=== PATIENT | male | born 1965 ===

== ENCOUNTER 2016-09-24 06:48 | Observation (INO) | payer SELFPAY ==
[2016-09-24 06:49] VITALS: BMI 27.3
[2016-09-24 07:54] LABS: BASO # 0.1 K/uL (0.0-0.2); BASO % 0.8 % (0.0-2.0); EOS # 0.8 K/uL (0.0-0.7); EOS % 11.6 % (0.0-4.0); HEMOGLOBIN 14.8 g/dL (12.0-18.0); LYMPH # 1.7 K/uL (1.0-4.3); LYMPH % 24.7 % (20.0-40.0); MEAN CELL VOLUME 82.1 fl (80.0-94.0); MEAN CORPUSCULAR HEMOGLOBIN 27.3 pg (27.0-31.0); MEAN CORPUSCULAR HGB CONC 33.3 g/dL (33.0-37.0); MEAN PLATELET VOLUME 8.9 fl (7.2-11.7); MONO # 0.4 K/uL (0.0-0.8); MONO % 6.1 % (0.0-10.0); NEUT % 56.8 % (50.0-75.0); NRBC % 0.1 % (0.0-0.0); RBC 5.43 Mil/uL (4.40-5.90)
[2016-09-24 08:06] LABS: INR 0.9 (0.9-1.2); PARTIAL THROMBOPLASTIN TIME 28.4 Seconds (25.6-37.1); PROTHROMBIN TIME 10.4 Seconds (9.8-13.1)
--- NOTE | 2016-09-24 08:17 | ED PDOC ---
HPI:STROKE - Time Time: 07:30 - Historian Historian: Patient, Hand [employer] ([employer]) - Chief Complaint Chief Complaint: Weakness, Difficulty walking - Onset Date: 09/17/16 Onset: Days (7) - Timing Timing: Intermittent - Context Context: Standing - Location Location: Difficult to localize Locate left: other (LUE / LLE) - Severity of pain Maximum severity:: Mild Severity Current: Mild - TPA Positive for Contraindication: Yes Reason tPA is not being Administered: symptoms ongoing 1 week - Notes: Notes:: 51yo male c/o dizziness, mild headache and subjective left sided weakness for about one week. Denies syncope, chest pain, change in speech. Does note occasional change in vision and palpitations. PMD clinic NIHSS Stroke Scale - Date/Time Evaluation Performed Date Performed: 09/24/16 Time Performed: 07:40 When Was NIHSS Performed: Baseline - How Severe is the Stroke Level of Consciousness: 0=Alert LOC to Questions: 0=Both comments correct LOC to commands: 0=Obeys both correctly Best Gaze: 0=Normal Visual: 0=No visual loss Facial: 0=Normal Motor Arm - Left: 0=No drift Motor Arm - Right: 0=No drift Motor Leg - Left: 0=No drift Motor Leg - Right: 0=No drift Limb Ataxia: 0=Absent Sensory: 0=Normal Best Language: 0=No aphasia Dysarthia: 0=Normal articulation Extinction & Inattention (Neglect): 0=Normal, no object Score: 0 rTPA Inclusion/Exclusion - Refusal of Treatment Patient Refused Treatment: No - Inclusion Criteria for Altepase Patient is 18 years or Older: Yes The Clinical Diagnosis of Ischemic Stroke That is Causing a Potentially Disabling Neurological Deficit: No Time of Onset is Well Established to be Less Than 270 Minute Before Treatment Would Begin: No Risk/Benefit Discussed With Patient/Family Member Present: No - Warning to TPA With Conditions Condition: Stroke Serevity Too Mild Past Medical History Reviewed: Historical Data, Nursing Documentation, Vital Signs Vital Signs: Last Vital Signs Temp 97.7 F 09/24/16 07:04 Pulse 60 09/24/16 07:21 Resp 18 09/24/16 07:21 BP 118/72 09/24/16 07:21 Pulse Ox 99 09/24/16 07:21 - Medical History PMH: HTN - Family History Family History: States: Unknown Family Hx - Social History Current smoker - smoking cessation education provided: No Drugs: Denies - Home Medications Home Medications: Ambulatory Orders Medication Instructions Recorded No Known Home Med 09/24/16 - Allergies Allergies/Adverse Reactions: Allergies Allergy/AdvReac Type Severity Reaction Status Date / Time No Known Allergies Allergy Verified 09/24/16 09:35 Review of Systems ROS Statement: Except As Marked, All Systems Reviewed And Found Negative Constitutional: Negative for: Fever, Chills Eyes: Positive for: Vision Change. Negative for: Eyelid Inflammation ENT: Negative for: Ear Discharge Cardiovascular: Negative for: Chest Pain, Palpitations, Paroxysmal Noc. Dyspnea Respiratory: Negative for: Cough, Shortness of Breath Gastrointestinal: Negative for: Nausea, Vomiting Genitourinary Male: Negative for: Dysuria, Frequency Musculoskeletal: Negative for: Neck Pain, Shoulder Pain Skin: Negative for: Rash, Lesions, Jaundice Neurological: Positive for: Weakness, Headache, Dizziness. Negative for: Numbness, Change in Speech, Confusion, Seizures Physical Exam - Reviewed Nursing Documentation Reviewed: Yes Vital Signs Reviewed: Yes - Physical Exam Appears: Positive for: Well, Non-toxic, No Acute Distress Head Exam: Positive for: ATRAUMATIC, NORMAL INSPECTION, NORMOCEPHALIC Skin: Positive for: Normal Color, Warm, DRY Eye Exam: Positive for: EOMI, Normal appearance, PERRL ENT: Positive for: Normal ENT Inspection Neck: Positive for: Normal, Painless ROM Cardiovascular/Chest: Positive for: Regular Rate, Rhythm Respiratory: Positive for: CNT, Normal Breath Sounds Gastrointestinal/Abdominal: Positive for: Normal Exam, Bowel Sounds, Soft Back: Positive for: Normal Inspection Extremity: Positive for: Normal ROM Neurologic/Psych: Positive for: Alert, debt collector II-XII (intact), Oriented. Negative for: Motor/Sensory Deficits (strength 5/5 all ext), Aphasia, Facial Droop - Laboratory Results Result Diagrams: 09/24/16 07:34 09/24/16 07:34 - ECG O2 Sat by Pulse Oximetry: 99 Medical Decision Making Medical Decision Making: cerebral ischemia workup initiated given c/o unilateral subjective weakness. CT brain neg, aspiring ordered. Admit FP service Obs for workup. Disposition - Clinical Impression Clinical Impression: TIA (transient ischemic attack) - Patient ED Disposition Is Patient to be Admitted: Yes Counseled Patient/Family Regarding: Studies Performed, Diagnosis - Disposition Disposition Time: 09:00 Condition: FAIR
--- NOTE | 2016-09-24 09:01 | CT ---
PROCEDURE: CT HEAD WITHOUT CONTRAST. HISTORY: Left sided weakness x 1 wk COMPARISON: 11/29/2012. TECHNIQUE: Axial computed tomography images were obtained through the head/brain without intravenous contrast. Radiation dose: Total exam DLP = 878.79 mGy-cm. This CT exam was performed using one or more of the following dose reduction techniques: Automated exposure control, adjustment of the mA and/or kV according to patient size, and/or use of iterative reconstruction technique. FINDINGS: HEMORRHAGE: No intracranial hemorrhage. BRAIN: Duncan-white matter differentiation is preserved. There is no mass, mass effect or abnormal extra-axial fluid collection. VENTRICLES: The ventricles are normal in size, shape and configuration. CALVARIUM: The skull base and calvarium are normal. PARANASAL SINUSES: Predominantly clear. MASTOID AIR CELLS: Predominantly clear. OTHER FINDINGS: None. IMPRESSION: No acute intracranial abnormality. If there is a persistent focal neurologic deficit and an ongoing clinical concern for acute infarction, an MRI of the brain without intravenous contrast would be a more sensitive modality for evaluation of hyperacute/acute ischemic infarction.
[2016-09-24 09:08] LABS: ALB/GLOB RATIO 1.3 (1.0-2.1); ALBUMIN 4.5 g/dL (3.5-5.0); ALT/SGPT 45 U/L (21-72); AST/SGOT 27 U/L (17-59); BLOOD UREA NITROGEN 17 mg/dl (9-20); CALCIUM 9.4 mg/dL (8.4-10.2); GFR AFRICAN-AMERICAN > 60; GFR NON-AFRICAN AMERICAN > 60; HDL CHOLESTEROL 37 MG/DL (30-70)
[2016-09-24 09:19] LABS: LDL CHOLESTEROL 100 mg/dL (0-129)
--- NOTE | 2016-09-24 10:34 | RAD ---
HISTORY: Shortness of breath COMPARISON: 06/13/2016. FINDINGS: LUNGS: There is bibasilar scarring. There is no focal consolidation. PLEURA: No significant pleural effusion identified, no pneumothorax apparent. CARDIOVASCULAR: Normal. OSSEOUS STRUCTURES: No significant abnormalities. VISUALIZED UPPER ABDOMEN: Normal. OTHER FINDINGS: None. IMPRESSION: No active pulmonary disease.
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
[2016-09-24] MEDS ORDERED: Gadodiamide 287 MG/ML VIAL (15ML) IV ONE (16:30)
--- NOTE | 2016-09-24 17:49 | MRI ---
PROCEDURE: MRI BRAIN WITH AND WITHOUT CONTRAST HISTORY: possible TIA COMPARISON: Comparison is made to the previous same-day CT of the head without contrast. TECHNIQUE: Multiplanar, multisequence MR images of the brain were obtained with and without intravenous contrast enhancement. FINDINGS: HEMORRHAGE: None DWI: No evidence of an acute or early subacute infarction. BRAIN PARENCHYMA: No mass,mass effect or edema. No atrophy or chronic microvascular ischemic changes. ENHANCEMENT: No abnormal intracranial enhancement. VENTRICLES: Unremarkable. No hydrocephalus. CRANIUM: Unremarkable. ORBITS: Grossly unremarkable. PARANASAL SINUSES/MASTOIDS: Clear VASCULAR SYSTEM: Skull base flow voids intact. OTHER FINDINGS: None . IMPRESSION: Unremarkable pre and post contrast enhanced MRI of the brain.
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
--- NOTE | 2016-09-24 19:04 | US ---
PROCEDURE: Carotid vertebral duplex HISTORY: New onset dizziness, upper extremity paresthesia COMPARISON: None available. TECHNIQUE: Grayscale, color Doppler and spectral Doppler assessment of the carotid system bilaterally. This includes common carotid, internal carotid arteries Vertebral artery assessment with respect to direction of flow (antegrade or retrograde) FINDINGS: RIGHT carotid system: Assessment of plaque: Heterogeneous plaque formation. Peak systolic ICA velocity: 95.1 cm/sec End-diastolic velocity: 40.2 cm/sec ICA/CCA ratio: 1.30 Vertebral artery flow: Antegrade LEFT carotid system: Assessment of plaque: Heterogeneous plaque formation. Peak systolic ICA velocity: 102.2 cm/sec End-diastolic velocity: 45.3 cm/sec ICA/CCA ratio: 1.0 Vertebral artery flow: Antegrade IMPRESSION: Right ICA degree of stenosis: Less than 50% Left ICA degree of stenosis: Less than 50% Reference Internal Carotid Artery (ICA) Peak Systolic Velocity (PSV) for above: 1. Less than 50% stenosis less than 125 cm/s peak systolic velocity 2. 50-69% stenosis 125-230cm/s peak systolic velocity 3. Greater than 70% but less than near occlusion greater than 230 cm/s peak systolic velocity
--- NOTE | 2016-09-25 08:12 | CARD ---
APPROVED REPORT EXAM: Two-dimensional and M-mode echocardiogram with Doppler, color Doppler with contrast. Other Information Quality : GoodRhythm : NSR INDICATION CVA/TIA Echo Enhancing Agent Indication: Endocardial border delineation Agent/Amount Used: Definity M-Mode DIMENSIONS Left Atrium (MM)3.82 (2.5-4.0cm)IVSd0.94 (0.7-1.1cm) Aortic Root3.24 (2.2-3.7cm)LVDd5.47 (4.0-5.6cm) Aortic Cusp Exc.2.41 (1.5-2.0cm)PWd0.87 (0.7-1.1cm) IVSs1.41 cmFS (%) 39 % LVDs3.35 (2.0-3.8cm)PWs1.00 cm Mitral Valve MV E Bwabicxt43.3cm/sMV DECEL [id number] A Jlsolfmt07.7cm/s MV ECH54pyZ/A ratio1.7MVA (PHT)3.74cm2 TDI Lateral E' Peak V15.97cm/sMedial E' Peak V12.06cm/sE/Lateral E'4.3 E/Medial E'5.7 Pulmonary Valve PV Peak Dfyckcsz608.5cm/s LEFT VENTRICLE The left ventricle is normal size. There is normal left ventricular wall thickness. Left ventricle systolic function is normal. The Ejection Fraction is 65-70%. There is normal LV segmental wall motion. The left ventricular diastolic function is normal. RIGHT VENTRICLE The right ventricle is normal size. There is normal right ventricular wall thickness. The right ventricular systolic function is normal. ATRIA The left atrium size is normal. The right atrium size is normal. AORTIC VALVE The aortic valve is normal in structure and function. No aortic regurgitation is present. There is no aortic valvular stenosis. MITRAL VALVE The mitral valve is normal in structure and function. There is no evidence of mitral valve prolapse. There is no mitral valve stenosis. There is no mitral valve regurgitation noted. TRICUSPID VALVE The tricuspid valve is normal in structure and function. There is no tricuspid valve regurgitation noted. PULMONIC VALVE The pulmonary valve is normal in structure and function. There is no pulmonic valvular regurgitation. GREAT VESSELS The aortic root is normal in size. Due to poor image quality, the IVC could not be assessed. PERICARDIAL EFFUSION The pericardium appears normal. <Conclusion> Echo enhancement was used to delineate endocardial surface and examine LV wall motion clearly. The left ventricle is normal size. There is normal left ventricular wall thickness. There is normal LV segmental wall motion. Left ventricle systolic function is normal. The Ejection Fraction is 65-70%. The left ventricular diastolic function is normal.
--- NOTE | 2016-09-25 08:30 | CARD ---
APPROVED REPORT EKG Measurement Heart [id number] HI [id number] <Conclusion> Normal sinus rhythm Normal ECG
[2016-09-25] MEDS ORDERED: Enoxaparin 40 mg Syringe SC SCH (09:00)
[2016-09-25 09:47] VITALS: TEMP 98
[2016-09-25 09:49] VITALS: BP 110/73; PULSE 80; RESP 14
[2016-09-25 14:53] LABS: FOLATE 12.1 ng/mL
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
[2016-10-03 11:06] VITALS: O2SAT 99
== END 2016-09-25 12:55 | disposition home or self-care (01) ==
LOC: H.ER 06:48 → H.ERHOLD 09:15 → H.ICU/CCU 10:00
PROVIDERS: ADMIT Family Medicine Geriatric Medicine; ATTEND Family Medicine Geriatric Medicine
DX: G45.9 Transient cerebral ischemic attack, unspecified (principal); I10 Essential (primary) hypertension; M54.2 Cervicalgia; E11.9 Type 2 diabetes mellitus without complications; E78.1 Pure hyperglyceridemia; E78.5 Hyperlipidemia, unspecified; R51 Headache

== ENCOUNTER 2016-11-27 08:41 | Day surgery (SDC) | payer SELFPAY ==
[2016-04-20 17:00] VITALS: BMI 27.3
[2016-11-27] MEDS ORDERED: Lactated Ringer's 500 ML IV ONE (08:56)
[2016-11-27] MEDS ORDERED: Propofol 10 mg/ml Inj (20 ML) ONE (12:32)
[2016-11-27 12:58] VITALS: TEMP 97
[2016-11-27 13:16] VITALS: BP 110/62; PULSE 61; RESP 14; O2SAT 99
== END 2016-11-27 13:19 | disposition home or self-care (01) ==
LOC: H.ENDO 08:41
PROVIDERS: ATTEND Internal Medicine Gastroenterology
DX: Z12.11 Encounter for screening for malignant neoplasm of colon (principal); E11.9 Type 2 diabetes mellitus without complications; K64.0 First degree hemorrhoids
CPT/HCPCS: 45378; J2001; J2704; J7120

== ENCOUNTER 2017-09-18 18:19 | Emergency (ER) | payer OTHER ==
[2017-09-18 18:20] VITALS: BMI 27.3
[2017-09-18 18:28] VITALS: BP 117/72; PULSE 70; RESP 16; TEMP 98.2; O2SAT 99
--- NOTE | 2017-09-18 19:20 | ED PDOC ---
HPI: Skin/Bite Injury Time Seen by Provider: 09/18/17 18:28 Chief Complaint (Nursing): Abnormal Skin Integrity Chief Complaint (Provider): Rash History Per: Patient History/Exam Limitations: no limitations Onset/Duration Of Symptoms: Days (x1) Current Symptoms Are (Timing): Still Present Additional Complaint(s): 52 year old male presents to the ED for evaluation of a rash covering his body since yesterday. He has been seen in the past for similar symptoms. PMD: Bismark Robbins Past Medical History Reviewed: Historical Data, Nursing Documentation, Vital Signs Vital Signs: Last Vital Signs Temp 98.2 F 09/18/17 18:25 Pulse 70 09/18/17 18:25 Resp 16 09/18/17 18:25 BP 117/72 09/18/17 18:25 Pulse Ox 99 09/18/17 19:27 - Medical History PMH: Diabetes (type 2), HTN, Hypercholesterolemia (Diet controlled) Denies: Chronic Kidney Disease - Surgical History Surgical History: Hernia Repair - Family History Family History: States: Unknown Family Hx - Social History Current smoker - smoking cessation education provided: No Alcohol: None Drugs: Denies - Home Medications Home Medications: Ambulatory Orders Medication Instructions Recorded metFORMIN [glucOPHAGE] 500 mg PO BID 11/27/16 Famotidine [Pepcid] 20 mg PO DAILY #6 tab 09/18/17 predniSONE [predniSONE Tab] 20 mg PO DAILY #12 tab 09/18/17 - Allergies Allergies/Adverse Reactions: Allergies Allergy/AdvReac Type Severity Reaction Status Date / Time No Known Allergies Allergy Verified 09/18/17 18:25 Review of Systems ROS Statement: Except As Marked, All Systems Reviewed And Found Negative Skin: Positive for: Rash Physical Exam - Reviewed Nursing Documentation Reviewed: Yes Vital Signs Reviewed: Yes - Physical Exam Appears: Positive for: No Acute Distress Head Exam: Positive for: ATRAUMATIC, NORMOCEPHALIC Skin: Positive for: Rash (on dorsal upper and lower extremities: erythematous papules with blanching and some areas of coalescing ) Neurologic/Psych: Positive for: Alert, Oriented (x3) - ECG O2 Sat by Pulse Oximetry: 99 (RA) Pulse Ox Interpretation: Normal Medical Decision Making Medical Decision Making: Initial Impression: rash Time: 18:44 Initial Plan: --Pepcid 20 mg PO --Methylprednisolone 125 mg IM Scribe Attestation Documented by Silva Campbell acting as a scribe for Agnes Ruiz PA-C. Provider Attestation All medical record entries made by the Scribe were at my direction and personally dictated by me. I have reviewed the chart and agree that the record accurately reflects my personal performance of the history, physical exam, medical decision making, and the department course for this patient. I have also personally directed, reviewed, and agree with the discharge instructions and disposition. Disposition - Clinical Impression Clinical Impression: Dermatitis - Patient ED Disposition Is Patient to be Admitted: No Counseled Patient/Family Regarding: Diagnosis, Need For Followup, Rx Given - Disposition Disposition: Routine/Home Disposition Time: 19:18 Condition: STABLE Additional Instructions: Follow-up with PMD. Benadryl may also be taken for itchiness. Prescriptions: Famotidine [Pepcid] 20 mg PO DAILY #6 tab predniSONE [predniSONE Tab] 20 mg PO DAILY #12 tab Instructions: Hives Forms: [email or web address] (Chinese)
== END 2017-09-18 19:22 | disposition home or self-care (01) ==
LOC: H.ER 18:19
DX: L30.9 Dermatitis, unspecified (principal); E11.9 Type 2 diabetes mellitus without complications; Z79.84 Long term (current) use of oral hypoglycemic drugs; E78.00 Pure hypercholesterolemia, unspecified; I10 Essential (primary) hypertension
CPT/HCPCS: 96372; 99282; J2930

== ENCOUNTER 2018-07-16 06:56 | Emergency (ER) | payer SELFPAY ==
[2018-07-16 07:02] VITALS: BMI 26.2
[2018-07-16 07:03] VITALS: BP 119/67; PULSE 56; RESP 18; O2SAT 99
--- NOTE | 2018-07-16 07:26 | ED PDOC ---
HPI: General Adult Time Seen by Provider: 07/16/18 07:05 Chief Complaint (Provider): Generalized Body aches History Per: Patient History/Exam Limitations: no limitations Onset/Duration Of Symptoms: Other (1 week) Additional Complaint(s): 53 y/o male presents to the ED complaining of generalized body aches and chills associated with left eye erythema thats been ongoing for 1 week. Patient denies fever, sore throat, cough, abdominal pain, nausea, vomiting, or any diarrhea. PMD: none provided Past Medical History Reviewed: Historical Data, Nursing Documentation, Vital Signs Vital Signs: Last Vital Signs Temp 97.5 F L 07/16/18 07:02 Pulse 56 L 07/16/18 07:02 Resp 18 07/16/18 07:02 BP 119/67 07/16/18 07:02 Pulse Ox 99 07/16/18 07:02 - Medical History PMH: Diabetes (type 2), HTN, Hypercholesterolemia (Diet controlled) Denies: Chronic Kidney Disease - Surgical History Surgical History: Hernia Repair - Family History Family History: States: Unknown Family Hx - Home Medications Home Medications: Ambulatory Orders Medication Instructions Recorded metFORMIN [glucOPHAGE] 500 mg PO BID 11/27/16 Famotidine [Pepcid] 20 mg PO DAILY #6 tab 09/18/17 predniSONE [predniSONE Tab] 20 mg PO DAILY #12 tab 09/18/17 Naproxen [Naprosyn] 500 mg PO Q12H #20 tab 07/16/18 Tobramycin 0.3% [Tobramycin 5 Ml] 1 drop OP TID #1 bottle 07/16/18 - Allergies Allergies/Adverse Reactions: Allergies Allergy/AdvReac Type Severity Reaction Status Date / Time No Known Allergies Allergy Verified 09/18/17 18:25 Review of Systems ROS Statement: Except As Marked, All Systems Reviewed And Found Negative Constitutional: Positive for: Chills, Other ((+) bodyaches.). Negative for: Fever Eyes: Positive for: Redness (left eye) ENT: Negative for: Throat Pain Respiratory: Negative for: Cough Gastrointestinal: Negative for: Nausea, Vomiting, Abdominal Pain, Diarrhea Physical Exam - Reviewed Nursing Documentation Reviewed: Yes Vital Signs Reviewed: Yes - Physical Exam Appears: Positive for: Well, Non-toxic, No Acute Distress Head Exam: Positive for: ATRAUMATIC, NORMAL INSPECTION, NORMOCEPHALIC Skin: Positive for: Normal Color, Warm, Dry Eye Exam: Positive for: Normal appearance, EOMI, PERRL, Conjunctival injection (Left eye), Scleral icterus (no discharge) ENT: Positive for: Normal ENT Inspection Neck: Positive for: Normal, Painless ROM, Supple Cardiovascular/Chest: Positive for: Regular Rate, Rhythm. Negative for: Murmur Respiratory: Positive for: Normal Breath Sounds. Negative for: Wheezing Gastrointestinal/Abdominal: Positive for: Normal Exam, Soft. Negative for: Tenderness Back: Positive for: Normal Inspection. Negative for: L CVA Tenderness, R CVA Tenderness Extremity: Positive for: Normal ROM Neurological/Psych: Positive for: Awake, Alert, Normal Tone, Oriented (x3). Negative for: Motor/Sensory Deficits - ECG O2 Sat by Pulse Oximetry: 99 Medical Decision Making Medical Decision Making: Time: 721 Initial Impression: Initial Plan: -Accucheck Scribe Attestation: Documented by Jordana Hendrix, acting as a scribe for Kashif Gonzáles Provider Scribe Attestation: All medical record entries made by the Scribe were at my direction and personally dictated by me. I have reviewed the chart and agree that the record accurately reflects my personal performance of the history, physical exam, medical decision making, and the department course for this patient. I have also personally directed, reviewed, and agree with the discharge instructions and disposition. Disposition - Clinical Impression Clinical Impression: Conjunctivitis, Viral syndrome - Patient ED Disposition Is Patient to be Admitted: No Counseled Patient/Family Regarding: Studies Performed, Diagnosis, Need For Followup, Rx Given - Disposition Referrals: [facility] [Outside] Disposition: Routine/Home Disposition Time: 07:39 Condition: FAIR Prescriptions: Naproxen [Naprosyn] 500 mg PO Q12H #20 tab Tobramycin 0.3% [Tobramycin 5 Ml] 1 drop OP TID #1 bottle Instructions: Conjunctivitis (Pinkeye), Viral Syndrome (DC)
[2018-07-16 07:48] VITALS: TEMP 97.6
== END 2018-07-16 07:42 | disposition home or self-care (01) ==
LOC: H.ER 06:56
DX: B34.9 Viral infection, unspecified (principal); H10.9 Unspecified conjunctivitis; E11.9 Type 2 diabetes mellitus without complications; E78.00 Pure hypercholesterolemia, unspecified; I10 Essential (primary) hypertension; Z79.84 Long term (current) use of oral hypoglycemic drugs

== ENCOUNTER 2018-07-18 16:07 | Emergency (ER) | payer SELFPAY ==
[2018-07-18 16:07] VITALS: BMI 26.2
[2018-07-18 16:18] VITALS: RESP 18
--- NOTE | 2018-07-18 17:03 | ED PDOC ---
HPI: Chest Pain Chief Complaint (Provider): Chest pain with back pain and headache History Per: Patient History/Exam Limitations: no limitations Onset/Duration Of Symptoms: Days (1 day duration) Current Symptoms Are (Timing): Other (Headache still present) Quality: Sharp (sharp chest pain and sharp back pain) Associated Symptoms: denies: Nausea, Dyspnea, Diaphoresis, Syncope Exacerbating Factors: None Alleviating Factors: None Additional Complaint(s): 53 yo male with history of DM and HTN presented to ED because of chest pain, dizziness and left sided WATSON. Chest pain began this morning while at work, he was lifting a 40 lb box at work and states that after he put it down he began to have left sided upper back pain with left sided chest pain associated with dizziness. Dizziness described as the room spinning, states it is worse when he lays flat. Reports no radiation of either back pain or chest pain. States he has also been suffering from a Left sided headache since last night associated with blurred vision. States he went to bed and woke up with the same Left sided headache- reports he has had this headache prior and is not reported as the worst headache of his life. He tried advil for the back and chest pain without any relief. He reports he had an episode yesterday where he felt tingling of his lower bilateral extremities. Denies dypsnea, nausea, vomiting, association of chest pain with food, abdominal pain, fevers, chills. PMD: [facility] Social: Denies smoking history, illicit drug use and alcohol use. - Risk Factors PE Risk Factors: Neg: Extremity Immobilization/Fx, Decreased Mobilty /Activity, Recent Major Surgery, Recent Hospitalization, Active Cancer, Previous DVT, Previous PE <Hoda De La Cruz - Last Filed: 07/18/18 18:50> <Ivette Ramirez - Last Filed: 07/19/18 15:00> Time Seen by Provider: 07/18/18 16:19 Chief Complaint (Nursing): Chest Pain Past Medical History Vital Signs: Last Vital Signs Temp 98.0 F 07/18/18 16:17 Pulse 59 L 07/18/18 16:17 Resp 18 07/18/18 16:17 BP 127/69 07/18/18 16:17 Pulse Ox 99 07/18/18 16:17 Primary Care Provider: FAMILY PROVIDER,NO - Medical History PMH: Diabetes (type 2), HTN, Hypercholesterolemia (Diet controlled) Denies: Chronic Kidney Disease - Surgical History Surgical History: Hernia Repair - Family History Family History: States: Unknown Family Hx <Hoda De La Cruz - Last Filed: 07/18/18 18:50> Vital Signs: Last Vital Signs Temp 98.0 F 07/18/18 16:17 Pulse 59 L 07/18/18 16:17 Resp 18 07/18/18 16:17 BP 127/69 07/18/18 16:17 Pulse Ox 99 07/18/18 18:52 <Ivette Ramirez - Last Filed: 07/19/18 15:00> - Home Medications Home Medications: Ambulatory Orders Medication Instructions Recorded metFORMIN [glucOPHAGE] 500 mg PO BID 11/27/16 Famotidine [Pepcid] 20 mg PO DAILY #6 tab 09/18/17 predniSONE [predniSONE Tab] 20 mg PO DAILY #12 tab 09/18/17 Naproxen [Naprosyn] 500 mg PO Q12H #20 tab 07/16/18 Tobramycin 0.3% [Tobramycin 5 Ml] 1 drop OP TID #1 bottle 07/16/18 Ibuprofen [Motrin Tab] 600 mg PO Q8 PRN #60 tab 07/18/18 - Allergies Allergies/Adverse Reactions: Allergies Allergy/AdvReac Type Severity Reaction Status Date / Time No Known Allergies Allergy Verified 09/18/17 18:25 ALLAN Risk Score for UA/NSTEMI - ALLAN Risk Score Age > 64: NO 3 or more CAD Risk Factors: NO Known CAD (Stenosis greater than 50%): NO Aspirin use in past 7 days: NO Severe Angina: NO EKG ST changes greater than 0.5mm: NO Positive Cardiac Marker: NO (0 ALLAN score) ALLAN Score: 0 Risk %: 5% <Hoda De La Cruz - Last Filed: 07/18/18 18:50> Wells Criteria for PE - Wells Criteria for Pulmonary Embolism Clinical Signs and Symptoms of DVT: No P.E is #1 Diagnosis, or Equally Likely: No Heart Rate >100: No Immobilization at least 3 days;Surgery previous 4 weeks: No Previous, objectively diagnosed PE or DVT: No Hemoptysis: No Malignancy w/treatment within 6 months, or palliative: No Total Score: 0 <Hoda De La Cruz - Last Filed: 07/18/18 18:50> Review of Systems Constitutional: Negative for: Fever, Chills, Malaise Eyes: Negative for: Pain ENT: Negative for: Ear Pain Cardiovascular: Positive for: Chest Pain (Left sided chest pain). Negative for: Palpitations Respiratory: Negative for: Cough, Shortness of Breath, Hemoptysis, SOB with Exertion, Wheezing Gastrointestinal: Negative for: Nausea, Vomiting, Abdominal Pain, Diarrhea Genitourinary Male: Negative for: Dysuria, Frequency Musculoskeletal: Positive for: Back Pain (left upper back pain) Skin: Positive for: Rash (bilateral lower extremity rash) Neurological: Negative for: Weakness, Numbness, Confusion <Hoda De La Cruz - Last Filed: 07/18/18 18:50> Physical Exam - Reviewed Vital Signs Reviewed: Yes - Physical Exam Appears: Positive for: Well, Non-toxic, No Acute Distress Head Exam: Positive for: NORMAL INSPECTION Skin: Positive for: Normal Color, Warm, Dry ENT: Positive for: TM Is/Are (clear. TM visualized. No erythema in canal). Negative for: Nasal Congestion Cardiovascular/Chest: Positive for: Regular Rate, Rhythm, Bradycardia. Negative for: Chest Non Tender, Murmur Respiratory: Positive for: Normal Breath Sounds. Negative for: Decreased Breath Sounds, Accessory Muscle Use, Crackles, Rales, Rhonchi, Stridor, Wheezing, Respiratory Distress Gastrointestinal/Abdominal: Positive for: Normal Exam, Bowel Sounds, Soft. Negative for: Tenderness, Guarding, Rebound, Hernia Back: Positive for: Normal Inspection, Other (Left tenderness noted on palpation of left spine of scapula). Negative for: L CVA Tenderness, R CVA Tenderness, Vertebral Tenderness Extremity: Positive for: Other (Bilateral rash (chronic) noted on lower extremities). Negative for: Tenderness, Pedal Edema, Calf Tenderness Neurological/Psych: Positive for: Awake, Alert, Oriented (Alert and Oriented x3.), Gait (Normal gait). Negative for: Motor/Sensory Deficits <Hoda De La Cruz - Last Filed: 07/18/18 18:50> - Laboratory Results Result Diagrams: 07/18/18 17:18 07/18/18 17:18 - ECG ECG: Positive for: Interpreted By Me ECG Rhythm: Positive for: Sinus Rhythm O2 Sat by Pulse Oximetry: 99 - Progress ED Course And Treament: 53 yo male with history of DM and HTN presented to ED because of chest pain, dizziness and left sided WATSON. Differentials: ACS vs. aortic dissection; migraine vs. acute intracranial pathology Plan: -- CBC -- Troponin -- CMP -- CT head without contrast -- CT angio -- Phos -- Mg -- CMP -- PT/PTT -- EKG Reassessed: 1834 Patient reports feeling about the same. -- CBC WNL, CMP WNL; PT/PTT: WNL -- CT head: negative for acute intracranial pathology -- CT angio pending read -- At this time based on Heart Pathway score of 2 (low risk)- repeat Troponin 3 hours after first troponin (@ 1999) and repeat EKG at that time. -- Plan is for discharge if 2nd troponin comes back negative and normal EKG. Discussed case with Dr. Ramirez. <Hoda De La Cruz - Last Filed: 07/18/18 18:50> - Laboratory Results Result Diagrams: 07/18/18 17:18 07/18/18 17:18 Lab Results: PT 12.0 Seconds (9.8-13.1) 07/18/18 17:18 INR 1.1 07/18/18 17:18 APTT 34.6 Seconds (25.6-37.1) 07/18/18 17:18 Troponin I < 0.0120 ng/mL (0.00-0.120) 07/18/18 20:39 Total Bilirubin 0.5 mg/dl (0.2-1.3) 07/18/18 17:18 AST 26 U/L (17-59) 07/18/18 17:18 ALT 32 U/L (21-72) 07/18/18 17:18 Alkaline Phosphatase 125 U/L (38-126) 07/18/18 17:18 Total Protein 7.5 G/DL (6.3-8.2) 07/18/18 17:18 Albumin 4.4 g/dL (3.5-5.0) 07/18/18 17:18 Globulin 3.1 gm/dL (2.2-3.9) 07/18/18 17:18 Albumin/Globulin Ratio 1.4 (1.0-2.1) 07/18/18 17:18 <Ivette Ramirez - Last Filed: 07/19/18 15:00> Disposition Doctor Will See Patient In The: Office - Disposition Disposition: Routine/Home Disposition Time: 18:52 <Hoda De La Cruz - Last Filed: 07/18/18 18:50> - Disposition Disposition Time: 21:59 <Ivette Ramirez - Last Filed: 07/19/18 15:00> - Clinical Impression Clinical Impression: Chest pain - Disposition Referrals: [facility] [Outside] - 07/21/18 Condition: STABLE Prescriptions: Ibuprofen [Motrin Tab] 600 mg PO Q8 PRN #60 tab PRN Reason: Pain, Moderate (4-7) Instructions: Chest Pain That Is Not Caused by the Heart (DC), Muscle Strain (DC) Forms: [facility] ED School/Work Excuse Print Language: TELUGU
[2018-07-18 17:24] LABS: BASO % 0.7 % (0.0-2.0); EOS # 0.3 K/uL (0.0-0.7); EOS % 6.3 % (0.0-4.0); HEMOGLOBIN 13.2 g/dL (12.0-18.0); LYMPH # 1.5 K/uL (1.0-4.3); LYMPH % 28.5 % (20.0-40.0); MEAN CORPUSCULAR HEMOGLOBIN 26.4 pg (27.0-31.0); MEAN CORPUSCULAR HGB CONC 32.6 g/dL (33.0-37.0); MEAN PLATELET VOLUME 8.2 fl (7.2-11.7); MONO # 0.3 K/uL (0.0-0.8); MONO % 6.3 % (0.0-10.0); NEUT % 58.2 % (50.0-75.0); RBC 4.98 Mil/uL (4.40-5.90); RED CELL DISTRIBUTION WIDTH 15.4 % (11.5-14.5); WHITE BLOOD COUNT 5.2 K/uL (4.8-10.8)
[2018-07-18 17:34] LABS: INR 1.1
[2018-07-18 17:37] LABS: PARTIAL THROMBOPLASTIN TIME 34.6 Seconds (25.6-37.1)
[2018-07-18] MEDS ORDERED: Iodixanol 320 MG/ML 100 ML BOTTLE IV ONE (17:39)
[2018-07-18] MEDS ORDERED: Sodium Chloride 0.9% 50 ML IV ONE (17:40)
[2018-07-18 18:09] LABS: ALB/GLOB RATIO 1.4 (1.0-2.1); ALBUMIN 4.4 g/dL (3.5-5.0); ALT/SGPT 32 U/L (21-72); AST/SGOT 26 U/L (17-59); BLOOD UREA NITROGEN 19 mg/dl (9-20); CALCIUM 9.1 mg/dL (8.4-10.2); GFR NON-AFRICAN AMERICAN > 60
--- NOTE | 2018-07-18 18:12 | CT ---
Date of service: 07/18/2018 PROCEDURE: CT HEAD WITHOUT CONTRAST. HISTORY: DIZZINESS HEADACHE COMPARISON: Comparison is made with 09/24/2016 TECHNIQUE: Axial computed tomography images were obtained through the head/brain without intravenous contrast. Radiation dose: Total exam DLP = 784.11 mGy-cm. This CT exam was performed using one or more of the following dose reduction techniques: Automated exposure control, adjustment of the mA and/or kV according to patient size, and/or use of iterative reconstruction technique. FINDINGS: HEMORRHAGE: No intracranial hemorrhage. BRAIN: No mass effect or edema. No atrophy or chronic microvascular ischemic changes. VENTRICLES: Unremarkable. No hydrocephalus. CALVARIUM: Unremarkable. PARANASAL SINUSES: Unremarkable as visualized. No significant inflammatory changes. MASTOID AIR CELLS: Unremarkable as visualized. No inflammatory changes. OTHER FINDINGS: None. IMPRESSION: No evidence of acute intracranial hemorrhage mass effect or midline shift.
--- NOTE | 2018-07-18 19:04 | CT ---
PROCEDURE: CT Angiography Chest, Abdomen and Pelvis with and without intravenous contrast HISTORY: chest pain radiating to back COMPARISON: None. TECHNIQUE: Contiguous axial images of the chest, abdomen and pelvis were obtained in the phase of aortic enhancement. A noncontrast enhanced CT of the chest was also obtained to evaluate for possible intramural thrombus. Coronal and sagittal reformats were generated. IV dose administered: 95 cc of Visipaque 320 intravenously. Radiation dose: Total exam DLP = 884.45 mGy-cm. This CT exam was performed using one or more of the following dose reduction techniques: Automated exposure control, adjustment of the mA and/or kV according to patient size, and/or use of iterative reconstruction technique. FINDINGS: CT ANGIOGRAPHY OF THE CHEST WITH & WITHOUT CONTRAST: AORTA (CHEST AND ABDOMEN): The thoracic and abdominal aorta are unremarkable, without aneurysm, dissection or rupture. No intramural thrombus identified in the thoracic aorta on the non-contrast ct of the chest. The celiac axis, superior mesenteric artery, inferior mesenteric artery and the renal arteries are widely patent. The pelvic arteries are unremarkable. LUNGS: Linear opacities are noted in the lower lobe may represent atelectasis or scar tissue. Mild pulmonary vascular congestion is noted. MEDIASTINUM: Unremarkable. Normal caliber aorta and pulmonary arterial trunk. No aortic dissection. The heart is mildly enlarged. LYMPH NODES: Unremarkable. PLEURA: Unremarkable. No pneumothorax. No pleural fluid. BONES: Unremarkable. OTHER FINDINGS: None. CT ANGIOGRAPHY OF THE ABDOMEN AND PELVIS WITH CONTRAST: LIVER: Hepatomegaly with findings suggestive of [id number]-[id number] hepatic steatosis. GALLBLADDER AND BILE DUCTS: Unremarkable. PANCREAS: Unremarkable. No gross lesion or ductal dilatation. SPLEEN: Unremarkable. ADRENALS: Unremarkable. No mass. KIDNEYS AND URETERS: Unremarkable. No hydronephrosis. No solid mass. VASCULATURE: Unremarkable. No aortic aneurysm. No aortic atherosclerotic calcification or mural plaque present. STOMACH AND BOWEL: Unremarkable. No obstruction. No gross mural thickening. APPENDIX: Normal appendix. PERITONEUM: Unremarkable. No free fluid. No free air. LYMPH NODES: Possible left posterior pelvic sidewall lymphadenopathy.. No enlarged retroperitoneal lymph nodes. BLADDER: Unremarkable. REPRODUCTIVE: Heterogeneous enlargement of the prostate is noted. BONES: No acute fracture. OTHER FINDINGS: None. IMPRESSION: No evidence of aortic dissection. Mild cardiomegaly and mild pulmonary vascular congestion. Heterogeneous moderate enlargement of the prostate. Suspicious for left posterior pelvic sidewall lymphadenopathy. Correlation with the PSA level is suggested. Hepatomegaly with findings suggestive of [id number] hepatic steatosis.
[2018-07-18 22:19] VITALS: BP 121/67; PULSE 65; TEMP 98.2; O2SAT 100
--- NOTE | 2018-07-19 11:47 | CARD ---
APPROVED REPORT Date of service: 07/18/2018 EKG Measurement Heart [id number] CO 172P46 [id number] <Conclusion> Normal sinus rhythm with sinus arrhythmia Normal ECG
--- NOTE | 2018-07-19 11:51 | CARD ---
APPROVED REPORT Date of service: 07/18/2018 EKG Measurement Heart [id number] OR 162P29 [id number] <Conclusion> Normal sinus rhythm Normal ECG
== END 2018-07-18 22:05 | disposition home or self-care (01) ==
LOC: SUPCPDRO 16:07 → H.ER 16:07
DX: R07.9 Chest pain, unspecified (principal); E11.9 Type 2 diabetes mellitus without complications; E78.00 Pure hypercholesterolemia, unspecified; I10 Essential (primary) hypertension; N40.0 Benign prostatic hyperplasia without lower urinary tract symptoms; Z79.84 Long term (current) use of oral hypoglycemic drugs
CPT/HCPCS: 70450; 71275; 74175; 80053; 82948; 83735; 84100; 84484; 85025; 85610; 85730; 93005; 99284; Q9967